=== PATIENT | female | born 1990 | race Caucasian/White ===

== ENCOUNTER 2019-04-28 22:26 | Observation (INO) | payer OTHER, SELFPAY ==
--- NOTE | 2019-04-28 22:41 | ED.SYNCOPE ---
HPI - Syncope General Chief Complaint: Syncope Stated Complaint: Syncope Time Seen by Provider: 04/28/19 22:38 Source: patient, family and EMS Limitations: no limitations History of Present Illness HPI narrative: 28-year-old female nonsmoker with no medical history presents with a chief complaint of an unprovoked syncopal episode earlier this evening. She had been in her normal state of health and was standing amongst a group of friends when she collapsed without any warning. She did not have any seizure-like activity. She had not been sick recently and denies any nausea, vomiting nor any new medications. She denies any street drugs. She recently flew home from [facility] and is on control. After her episode she very quickly returned to her baseline in asked what was going on. She sat up in a chair for a few minutes and then again had a syncopal episode. Again unprovoked. No change in position, use of the toilet or other common triggers. MD complaint: loss of consciousness Onset (ago): minute(s) Description of event: other Prodromal symptoms: none Witnessed: yes - by bystander Context: at rest Injuries sustained associated with event: none Current symptoms: none and back to baseline Treatments prior to arrival: none Related Data Home Medications Medication Instructions Recorded Confirmed No Known Home Medications 04/29/19 04/29/19 Allergies Allergy/AdvReac Type Severity Reaction Status Date / Time No Known Drug Allergies Allergy Verified 04/28/19 22:43 Review of Systems Constitutional Constitutional: Denies chills, Denies fatigue, Denies fever(s), Denies frequent falls, Denies lethargy and Denies weakness Eyes Eyes: Denies change in vision, Denies eye discharge, Denies irritation and Denies loss of vision ENT Ears, Nose, Mouth, and Throat: Denies change in voice, Denies dizziness, Denies neck pain, Denies sore throat and Denies throat swelling Cardiovascular Cardiovascular: Denies chest pain, Reports syncope, Denies irregular heart rhythm, Denies lightheadedness, Denies palpitations, Denies dyspnea, Denies dyspnea on exertion and Denies orthopnea Respiratory Respiratory: Denies cough, Denies dyspnea, Denies dyspnea on exertion and Denies wheezing Gastrointestinal Gastrointestinal: Denies abdominal pain, Denies change in bowel habits, Denies diarrhea, Denies nausea and Denies vomiting Genitourinary Genitourinary: Denies hematuria, Denies flank pain, Denies urinary incontinence and Denies urinary urgency Musculoskeletal Musculoskeletal: Denies back pain, Denies muscle weakness, Denies neck pain, Denies numbness and Denies tingling Integumentary/Breasts Skin/Breast: Denies pruritus, Denies erythema, Denies rash and Denies wounds Neurologic Neurologic: Denies behavioral changes, Denies confusion, Denies dizziness, Reports syncope, Denies frequent falls, Denies loss of vision, Denies numbness, Denies tingling and Denies weakness Psychiatric Psychiatric: Denies anxiety, Denies behavioral changes, Denies confusion, Denies depression, Denies homicidal ideation and Denies suicidal ideation Endocrine Endocrine: Denies fatigue, Denies flushing and Denies palpitations Hematologic/Lymphatic Hematologic/Lymphatic: Denies easy bruising Allergic/Immunologic Allergic/Immunologic: Denies urticaria, Denies throat swelling and Denies wheezing Patient History Medical History No active medical problems (Acute) Surgical History History of photorefractive keratectomy (Acute) Family History Father No active medical problems Mother No active medical problems Sister No active medical problems Social History household members: friend(s) Smoking Status: Never smoker Exam Narrative Exam Narrative: GENERAL: [28] year old patient appears stated age. Well-nourished, well-developed patient, in mild distress. HEAD: Atraumatic. Normocephalic. EYES: Pupils equal round and reactive. Extraocular motions intact. No scleral icterus. No injection or drainage. ENT: Nose without bleeding, purulent drainage. Throat without erythema, tonsillar hypertrophy or exudate. Airway patent. NECK: Trachea midline. Non tender CARDIOVASCULAR: Regular rate and rhythm without murmurs, gallops, or rubs. RESPIRATORY: Clear to auscultation. Breath sounds equal bilaterally. No wheezes, rales, or rhonchi. GASTROINTESTINAL: Abdomen soft, non-tender, nondistended. EXTREMITIES: No edema or joint tenderness. BACK: Nontender without deformity or crepitance. No flank tenderness. NEURO: AOx3. SKIN: No rash or erythema of visible areas Initial Vital Signs Initial Vital Signs: Vital Signs Temperature 97.9 F 04/28/19 22:43 Pulse Rate 85 04/28/19 22:43 Respiratory Rate 16 04/28/19 22:43 Blood Pressure 113/69 04/28/19 22:43 Pulse Oximetry 100 04/28/19 22:43 Course Orders Ordered: ED Orders 04/28/19 22:15 Basic Metabolic Panel Stat Complete Blood Count AUTO DIFF Stat D Dimer Stat Magnesium Stat 04/28/19 23:06 CT angio chest PE protocol Stat Acetaminophen (Tylenol) 650 mg PO Q6HR PRN PRN Reason: As Needed for Fever/Mild Pain Al Hydrox/Mg Hydrox/Simethicone (Maalox Plus) 30 ml PO Q6HR PRN PRN Reason: Dyspepsia Calcium Carbonate (Tums) 1,000 mg PO Q4HR PRN PRN Reason: Dyspepsia Sodium Chloride (Normal Saline 0.9%) 1,000 mls @ 50 mls/hr IV CONT RADHA Last Admin: 04/29/19 00:40 Dose: 50 mls/hr Documented by: TAJ Ondansetron HCl (Zofran) 4 mg IV Q8HR PRN PRN Reason: Nausea And Vomiting Discontinued Medications Sodium Chloride (Normal Saline 0.9%) 1,000 mls @ 1,000 mls/hr IV BOLUS ONE Stop: 04/28/19 23:38 Last Infusion: 04/28/19 23:41 Dose: 1,000 mls/hr Documented by: Admin: 04/28/19 22:43 Dose: 1,000 mls/hr Documented by: HARIS Vital Signs Vital signs: Vital Signs - 8 hr 04/28/19 22:43 04/28/19 23:53 Temperature 97.9 F Pulse Rate 85 126 H Respiratory Rate 16 19 Blood Pressure 113/69 Blood Pressure [Left Arm] 116/60 Pulse Oximetry 100 100 MDM - Syncope Lab Data Result diagrams: 04/29/19 04:40 04/29/19 04:40 Labs: Lab Results 04/28/19 04/28/19 04/28/19 Range/Units 22:15 22:15 22:15 WBC 14.3 H (4.5-11.0) X10^3/uL RBC 4.68 (4.0-5.2) X10^6/uL Hgb 14.4 (12.0-16.0) g/dL Hct 42.5 (36-46) % MCV 90.7 (80-100) fL MCH 30.8 (26-34) PG MCHC 34.0 (30-36) % RDW 12.7 (11.6-14.8) % Plt Count 405 H (150-400) X10^3/uL Neut % (Auto) Not Reportable Lymph % (Auto) Not Reportable [place] % (Auto) Not Reportable Eos % (Auto) Not Reportable Baso % (Auto) Not Reportable Lymph # (Auto) Not Reportable [place] # (Auto) Not Reportable Baso # (Auto) Not Reportable Total Counted 100 Seg Neutrophils % 59.0 (38-70) % Band Neutrophils % 3.0 (3-7) % Lymphocytes % (Manual) 24.0 L (25-45) % Atypical Lymphs % 9.0 H ( - 0) % Monocytes % (Manual) 5.0 (2-11) % Neutrophils # (Manual) 8866 H (9717-6216) /uL RBC Morphology Normal morphology D-Dimer 642 H (<230) ng/mL Sodium 140 (137-145) mmol/L Potassium 3.9 (3.4-5.1) mmol/L Chloride 101 (98-107) mmol/L Carbon Dioxide 23 (22-32) mmol/L BUN 12 (7-17) mg/dL Creatinine 0.90 (0.52-1.04) mg/dL Estimated GFR > 60.0 (>60) mL/min BUN/Creatinine Ratio 13.3 (6-22) Glucose 115 H (70-100) mg/dL Calcium 10.0 (8.4-10.2) mg/dL Magnesium 2.4 H (1.6-2.3) mg/dL Point of Care Testing Test Results Negative Urine Dip Bedside Urine Glucose Negative Bedside Urine Bilirubin - Negative Bedside Urine Ketone - Negative Urine Specific [place] 1.010 Bedside Urine Occult Blood - Negative Bedside Urine pH 6.0 Bedside Urine Protein +/- 15 Bedside Urine Urobilinogen - Negative Bedside Urine Nitrite - Negative Bedside Urine Leukocytes - Negative Esterase Imaging Data CT scan - chest: Radiologist's impression: No PE ECG Data Attestation: I personally reviewed and interpreted this ECG as follows: MDM Narrative Medical decision making narrative: 28-year-old female with unprovoked syncope and no clear cause raises the question of a cardiac arrhythmia. Patient asymptomatic in the department, reassuring labs, EKG and a CT a which demonstrates no PE Discharge Plan Departure Patient Disposition: Admitted as Observation Clinical Impression: Atypical syncope Discharge Date/Time: 04/29/19 00:35 Admit Date/Time: 04/29/19 00:04 Admit Provider: Jimenez Bach
[2019-04-28 22:43] VITALS: BP 113/69; PULSE 85; RESP 16; TEMP 36.6; O2SAT 100; BMI 25.7
[2019-04-28] MEDS: SODIUM CHLORIDE 0.9% 1,000 ML 1000 ML IV (22:43)
[2019-04-28 22:53] LABS: Hematocrit 42.5 % (36-46); Hemoglobin 14.4 g/dL (12.0-16.0); Mean Corpuscular Hemoglobin 30.8 PG (26-34); Mean Corpuscular Volume 90.7 fL (80-100); Platelet Count 405 X10^3/uL (150-400); Red Blood Cell Count 4.68 X10^6/uL (4.0-5.2); Red Cell Distribution Width 12.7 % (11.6-14.8); White Blood Cell Count 14.3 X10^3/uL (4.5-11.0)
[2019-04-28 22:54] LABS: Add Manual Diff / Slide Review YES
[2019-04-28 22:56] LABS: D Dimer 642 ng/mL (<230)
[2019-04-28 22:57] LABS: BUN Creatinine Ratio 13.3 (6-22); Blood Urea Nitrogen 12 mg/dL (7-17); Carbon Dioxide 23 mmol/L (22-32); Chloride 101 mmol/L (98-107); Estimated Glomerular Filt Rate > 60.0 mL/min (>60); Glucose 115 mg/dL (70-100); HEMOLYSIS 41 (0-50); Magnesium 2.4 mg/dL (1.6-2.3); Potassium 3.9 mmol/L (3.4-5.1); Sodium 140 mmol/L (137-145)
--- NOTE | 2019-04-28 23:06 | DI.CT.S_ITS ---
PROCEDURE: CT ANGIO CHEST PE PROTOCOL INDICATIONS: syncope, elevated D-Dimer, frequent flights, on control TECHNIQUE: After the administration of intravenous contrast, 2 mm thick sections acquired from the pulmonary apices to the posterior costophrenic angles. 3-dimensional maximum intensity projection (MIP) coronal and sagittal reformats were then acquired through the thorax. For radiation dose reduction, the following was used: automated exposure control, adjustment of mA and/or kV according to patient size. COMPARISON: None. FINDINGS: Image quality: Excellent. Pulmonary arteries: Pulmonary arteries are normal in size, and demonstrate no intraluminal filling defects to suggest central pulmonary embolism. Lungs and pleura: Lungs are clear. No pleural effusions or pneumothorax. Central and peripheral airways are patent. Mediastinum: Heart size is normal, without pericardial effusion. No mediastinal or hilar adenopathy. Thoracic aorta is normal in caliber and enhancement. Esophagus is normal in caliber, without hiatal hernia. Bones and chest wall: No suspicious bony lesions. Ribs and thoracic spine appear intact throughout. Thyroid gland is within normal limits where visualized. No axillary or supraclavicular adenopathy. Abdomen: Visualized upper abdominal solid organs appear normal in the early arterial phase of enhancement. IMPRESSION: 1. No pulmonary embolus. 2. No lung consolidation or pleural effusions. Dictated by: Gini Tracy MD, PhD on 04/29/2019 at 7:29 Approved by: Gini Tracy MD, PhD on 04/29/2019 at 7:31
[2019-04-28 23:52] LABS: Neutrophils Absolute Manual 8866 /uL (3000-5900); Total Cells Counted 100
[2019-04-28 23:53] VITALS: BP 116/60; PULSE 126; RESP 19; O2SAT 100
[2019-04-28 23:53] LABS: RBC Morphology Normal Morphology
[2019-04-29] VITALS (7 sets, daily range): BP systolic 113–136; BP diastolic 60–84; PULSE 78–126; RESP 14–20; TEMP 36.8–37.2; O2SAT 98–100; BMI 25.7
[2019-04-29] MEDS: SODIUM CHLORIDE 0.9% 1,000 ML 50 ML IV (00:40)
--- NOTE | 2019-04-29 00:52 | PM.HP.1 ---
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 Patient reports that she was at a casino with friends and states that 1 moment she was standing in the next moment she was on the floor. Her friends were with her did not witness the 1st episode but describes her as being pale and diaphoretic. Color returned spontaneously in the patient was assist bar where she experienced a 2nd syncopal episode while drinking water with some shaking of the hands again becoming pale and diaphoretic prior to passing out. Per her friends the patient was unresponsive for only few seconds waking with rapid return to baseline mentation. The patient has had no prior history of syncope, she has had 2 beers tonight. She denies recent fevers or chills but has had recent symptoms of upper respiratory infection with nasal congestion. She denies sore throat. She has had no shortness of breath or cough and denies wheezing. She denies chest pain or palpitations. She reports no abdominal pain, nausea vomiting, heartburn, constipation or diarrhea. She reports no urinary symptoms, no urgency frequency or burning. 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 Patient's only medication is control pills. Per report EMS upon arrival the patient was hypotensive and bradycardic. Upon arrival to the ER she is afebrile with temperature 97.9?, heart rate of 85, blood pressure 113/69, respirations 16 saturating 100% on room air. An EKG is obtained showing baseline artifact with sinus rhythm without ectopy, inverted T-wave in lead III, subtle possibility delta wave, normal QTC interval. Patient also had a D-dimer done related to history of trans was handed flight from [place] 3 weeks ago which is found to be elevated at 642, CT angiogram was obtained which is negative for pulmonary embolism, normal heart size with no pericardial effusion, mild diffuse bronchial wall thickening, no bronchiectasis, no suspicious pulmonary nodules on laboratory analysis the patient has an elevated white count of 14.3 with a hemoglobin of 14.4 and hematocrit 42.5 with platelets of 405. Patient is a low lymphocyte count at 24% and elevated atypical lymphs at 9%. Her chemistry panels fully within normal limits with a BUN of 12 and a creatinine 0.9. Her nonfasting glucose is 115. Magnesium is 2.4. Urine dip screening shows a specific gravity of 1.010, without ketones or signs of infection. Urine test is negative. The patient is admitted to the the medicine service following 2 syncopal episodes of unknown etiology. Patient History Medical History No active medical problems (Acute) Surgical History History of photorefractive keratectomy (Acute) Family & Social History Family History (Updated 04/29/19 @ 01:29 by BAO Dang) Father No active medical problems Mother No active medical problems Sister No active medical problems Safety & Behavioral: Feels Safe in Current Yes Environment Tobacco & Substance use: Smoking Status Never smoker alcohol intake frequency a few times a week Substance Use Type does not use Comment: The patient is presently single lives in a single in a single family house. She reports that her parents are both healthy with no known medical problems and she has 1 sister who is also in good health. She does at that there is diabetes on her father's side but no history of cancer or heart disease. Occupation: Active duty [email or web address]. Smoking: Patient will have an occasional cigarette in social settings Alcohol: Patient endorses approximately 3 drinks per week. Substance use: The patient denies recreational pharmaceuticals herbal or cannabis products. Advanced directives: The patient has no formal advanced directive but states her desire to be FULL CODE. She designates her father Abdias to be her surrogate decision maker. Meds Home Medications and Allergies Home Medications Medication Instructions Recorded Confirmed Type No Known Home Medications 04/29/19 04/29/19 History Allergies Allergy/AdvReac Type Severity Reaction Status Date / Time No Known Drug Allergies Allergy Verified 04/28/19 22:43 Review of Systems Review of Systems ROS Unobtainable: All systems reviewed & are unremarkable except as noted in HPI and below Exam Vital Signs (past 8 hours): - 04/28/19 22:43 04/28/19 23:53 Temperature 97.9 F Pulse Rate 85 126 H Respiratory Rate 16 19 Blood Pressure 113/69 Blood Pressure [Left Arm] 116/60 Pulse Oximetry 100 100 Oxygen Delivery Method Room Air Narrative Exam Narrative: GENERAL APPEARANCE: well developed, well nourished, in no acute distress. HEENT: Symmetrical facies, no neurology, atraumatic, PERRLA, conjunctiva clear, EOMs intact without nystagmus, no sinus tenderness to percussion, no rhinorrhea, mucous membranes are moist and pink without lesions or exudate. NECK/THYROID: neck supple, no JVD, no thyromegaly, trachea midline. LYMPH NODES: no cervical or supraclavicular lymphadenopathy. SKIN: warm and dry, no suspicious lesions, no rashes, ulcerations or petechiae. HEART: Tachycardic rate and rhythm, S1-S2, no murmur, no rubs or gallops, 2+ dorsalis pedis pulses, brisk capillary refill, no edema. LUNGS: clear to auscultation bilaterally, no coarseness crackles or wheezing, no cough present. CHEST: Symmetrical movement, no accessory muscle use, no pain to AP and lateral compression. ABDOMEN: Soft, no distention, no abdominal tenderness, no guarding or peritoneal signs, no organomegaly, no flank or suprapubic tenderness, active bowel tones. BACK: Normal curvature, nontender to palpation, no CVA tenderness on percussion. EXTREMITIES: moves all extremities, strength is 5/5 and symmetrical, no deformities or joint effusions, no calf tenderness, negative Garcia. NEUROLOGIC: AAO x4, no focal neurologic deficits, sensation intact to light touch, hearing grossly normal to speech. PSYCH: Anxious, cognitive function intact, good eye contact, stable behavior. Objective Labs Result Diagrams: 04/28/19 22:15 04/28/19 22:15 Labs: Laboratory Results - last 24 hr 04/28/19 04/28/19 04/28/19 22:15 22:15 22:15 WBC 14.3 H RBC 4.68 Hgb 14.4 Hct 42.5 MCV 90.7 MCH 30.8 MCHC 34.0 RDW 12.7 Plt Count 405 H Neut % (Auto) Not Reportable Lymph % (Auto) Not Reportable [place] % (Auto) Not Reportable Eos % (Auto) Not Reportable Baso % (Auto) Not Reportable Lymph # (Auto) Not Reportable [place] # (Auto) Not Reportable Baso # (Auto) Not Reportable Total Counted 100 Seg Neutrophils % 59.0 Band Neutrophils % 3.0 Lymphocytes % (Manual) 24.0 L Atypical Lymphs % 9.0 H Monocytes % (Manual) 5.0 Neutrophils # (Manual) 8866 H RBC Morphology Normal morphology D-Dimer 642 H Sodium 140 Potassium 3.9 Chloride 101 Carbon Dioxide 23 BUN 12 Creatinine 0.90 Estimated GFR > 60.0 BUN/Creatinine Ratio 13.3 Glucose 115 H Calcium 10.0 Magnesium 2.4 H Assessment & Plan Assessment & Plan narrative: This 20-year-old female with 2 [id number] syncopal episodes several minutes apart lasting only for a few seconds each time. Patient sustained no trauma and has no predisposing history. 1. Syncopal episode, acute, resolved, active -patient sustained syncopal episode occurring while standing performing no strenuous activity with friends at a casino. Second episode occurred while sitting at the bar drinking water. Patient has sustained no trauma. No provocative activities prior to syncope. -patient with associated pallor with diaphoresis associated with the events, rapid return to consciousness and baseline no seizure activity noted. -differential diagnosis: -vasovagal mediated syncope, patient consumed 2 beers prior to the events,history of possible cold symptoms. Per EMS bradycardic and hypotensive -cardiac arrhythmia, suggestion of isoelectric delta wave on 12 lead EKG, no prolonged QTC, not characteristic of [place] syndrome. -neurologic event, presentation and rapid recovery is inconsistent with seizure or neurological event in absence of headache or neuro symptoms. -will obtain orthostatic vital signs, normal saline 50 cc/hour. -obtain echocardiogram in the morning -repeat 12 lead EKG in the morning -repeat BMP monitor electrolytes. 2. Atypical lymphocytosis, acute, present on admission, active -patient with low lymphocyte percentage it 24.0 % and high atypical lymphs at 9%. Normal neutrophil count at 59 % and pain are 3%. -most likely related to recent cold symptoms reporting nasal congestion but no fevers, no sore throat or lymphadenopathy. -will repeat CBC in the morning. 3. Elevated D-dimer, acute, present on admission, active -patient with no recent history of trauma or injury, history of long flight returning from [facility] 3 weeks ago D-dimer elevated at 642. -no complaints of chest pain, exertional dyspnea or shortness of breath. -CTAs obtained the ER which is negative for pulmonary embolism. VTE: no The patient is admitted to the hospital related to syncope of unknown etiology in the prescribed per 10 she will complications or adverse events. The patient is admitted as observation with expected length of stay to be less than 2 midnights. Scores GCS [place] coma scale eye opening: Spontaneous [place] coma scale verbal response: Orientated Bo coma scale motor response: Obey commands [place] coma scale total score: 15
--- NOTE | 2019-04-29 01:39 | PC.NURSE ---
0040 Pt. admitted to room 228, with the diagnosed of 2 Syncopal episodes. Oriented to her room, showed how to use her Call light, TV & bed controls. Denies any dizziness, nausea, pain & other discomfort. Encouraged to call Nursing staff if she needed to get up OOb to the BR. Call light with in reach & bed alarm activated. Will cont. POC & monitor.
[2019-04-29 05:06] LABS: BUN Creatinine Ratio 14.3 (6-22); Blood Urea Nitrogen 10 mg/dL (7-17); Calcium 9.2 mg/dL (8.4-10.2); Carbon Dioxide 25 mmol/L (22-32); Chloride 106 mmol/L (98-107); Estimated Glomerular Filt Rate > 60.0 mL/min (>60); Glucose 92 mg/dL (70-100); HEMOLYSIS < 15 (0-50); Potassium 4.4 mmol/L (3.4-5.1); Sodium 138 mmol/L (137-145)
[2019-04-29 05:07] LABS: Add Manual Diff / Slide Review NO; Basophils Absolute Auto 100 /uL (0-100); Basophils Percent Auto 0.4 % (0-2); Eosinophils Absolute Auto 100 /uL (0-450); Eosinophils Percent Auto 0.6 % (2-4); Hematocrit 38.5 % (36-46); Hemoglobin 12.9 g/dL (12.0-16.0); Lymphocytes Absolute Auto 3500 /uL (1100-4500); Mean Corpuscular HGB Conc 33.7 % (30-36); Mean Corpuscular Hemoglobin 30.4 PG (26-34); Mean Corpuscular Volume 90.3 fL (80-100); Monocytes Absolute Auto 800 /uL (0-900); Neutrophils Absolute Auto 7200 /uL (1500-7000); Platelet Count 350 X10^3/uL (150-400); Red Blood Cell Count 4.26 X10^6/uL (4.0-5.2); White Blood Cell Count 11.6 X10^3/uL (4.5-11.0)
[2019-04-29 06:00] LABS: TSH w/ Reflex to FT4 2.27 uIU/mL (0.47-4.68)
--- NOTE | 2019-04-29 06:58 | PC.NURSE ---
0550 SBA to the BR. denies any dizziness, nausea & discomfort. Voided 500 cc of yue urine, NS infusing @ 50 cc/hr. Will cont. POC & monitor.
--- NOTE | 2019-04-29 09:05 | PM.DS.1 ---
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 Patient reports that she was at a casino with friends and states that 1 moment she was standing in the next moment she was on the floor. Her friends were with her did not witness the 1st episode but describes her as being pale and diaphoretic. Color returned spontaneously in the patient was assist bar where she experienced a 2nd syncopal episode while drinking water with some shaking of the hands again becoming pale and diaphoretic prior to passing out. Per her friends the patient was unresponsive for only few seconds waking with rapid return to baseline mentation. The patient has had no prior history of syncope, she has had 2 beers tonight. She denies recent fevers or chills but has had recent symptoms of upper respiratory infection with nasal congestion. She denies sore throat. She has had no shortness of breath or cough and denies wheezing. She denies chest pain or palpitations. She reports no abdominal pain, nausea vomiting, heartburn, constipation or diarrhea. She reports no urinary symptoms, no urgency frequency or burning. 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 Patient's only medication is control pills. Per report EMS upon arrival the patient was hypotensive and bradycardic. Upon arrival to the ER she is afebrile with temperature 97.9?, heart rate of 85, blood pressure 113/69, respirations 16 saturating 100% on room air. An EKG is obtained showing baseline artifact with sinus rhythm without ectopy, inverted T-wave in lead III, subtle possibility delta wave, normal QTC interval. Patient also had a D-dimer done related to history of trans was handed flight from [place] 3 weeks ago which is found to be elevated at 642, CT angiogram was obtained which is negative for pulmonary embolism, normal heart size with no pericardial effusion, mild diffuse bronchial wall thickening, no bronchiectasis, no suspicious pulmonary nodules on laboratory analysis the patient has an elevated white count of 14.3 with a hemoglobin of 14.4 and hematocrit 42.5 with platelets of 405. Patient is a low lymphocyte count at 24% and elevated atypical lymphs at 9%. Her chemistry panels fully within normal limits with a BUN of 12 and a creatinine 0.9. Her nonfasting glucose is 115. Magnesium is 2.4. Urine dip screening shows a specific gravity of 1.010, without ketones or signs of infection. Urine test is negative. The patient is admitted to the the medicine service following 2 syncopal episodes of unknown etiology. Discharge Providers Provider Date of admission: 04/29/19 00:04 Discharge Date: 04/29/19 Consults: 04/29/19 00:33 Consult to Discharge Planning Routine Comment: Discharge provider: Jimenez Garcia DO Summary Hospital Course Discharge Diagnosis: 1. Syncopal episode, acute, resolved 2. Atypical lymphocytosis, acute, present on admission, active 3. Elevated D-dimer, acute, present on admission, active Hospital Course: Patient was admitted under observation status over concern after [id number] episodes of syncope. Her story is reassuring for a vasovagal mediated syncope given complaints of feeling hot after the episode and that she regained consciousness so quickly. Her EKG is unremarkable, it is normal sinus rhythm and there is no evidence of delta wave or evidence of ischemia. There is no need to obtain an echocardiogram given her young age, reassuring story, and normal EKG. There were no events on telemetry overnight and patient is to follow up with her primary care provider. Status at Discharge Cognitive/behavioral status at discharge: oriented Exam Vital Signs (past 8 hours): - 04/29/19 05:00 04/29/19 05:50 Temperature 98.3 F Pulse Rate 92 H Respiratory Rate 16 Blood Pressure 113/64 Pulse Oximetry 99 98 Oxygen Delivery Method Room Air Oxygen Flow Rate 0 Narrative Exam Narrative: GENERAL APPEARANCE: Well developed, well nourished, in no acute distress. SKIN: Inspection of the skin reveals no rashes, ulcerations or petechiae. HEENT: The sclerae were anicteric and conjunctivae were pink and moist. Extraocular movements were intact and pupils were equal, round with normal accommodation. External inspection of the ears and nose showed no scars, lesions, or masses. Lips, teeth, and gums showed normal mucosa. The oral mucosa, hard and soft palate, tongue and posterior pharynx were unremarkable. NECK: Supple and symmetric. There was no thyroid enlargement, and no tenderness, or masses were felt. CHEST: Normal AP diameter and normal contour without any kyphoscoliosis. LUNGS: Auscultation of the lungs revealed no wheezes, rhonchi, or rales. CARDIOVASCULAR: There was a regular rate and rhythm without any murmurs, gallops, rubs. Peripheral pulses were 2+ and symmetric. ABDOMEN: Soft and nontender with normal bowel sounds. No ascites was noted. MUSCULOSKELETAL: There was no tenderness or effusions noted. Muscle strength and tone were normal. EXTREMITIES: No cyanosis, clubbing or edema. NEUROLOGIC: Alert and oriented x 3. Normal affect. Gait was normal. Strength is +5/5 in the Upper Extremities and Lower Extremities Bilaterally. Sensation to touch was normal. Objective Labs Result Diagrams: 04/29/19 04:40 04/29/19 04:40 Labs: Laboratory Results - last 24 hr 04/28/19 04/28/19 04/28/19 22:15 22:15 22:15 WBC 14.3 H RBC 4.68 Hgb 14.4 Hct 42.5 MCV 90.7 MCH 30.8 MCHC 34.0 RDW 12.7 Plt Count 405 H Neut % (Auto) Not Reportable Lymph % (Auto) Not Reportable Hendricks % (Auto) Not Reportable Eos % (Auto) Not Reportable Baso % (Auto) Not Reportable Neut # (Auto) Lymph # (Auto) Not Reportable Hendricks # (Auto) Not Reportable Eos # (Auto) Baso # (Auto) Not Reportable Total Counted 100 Seg Neutrophils % 59.0 Band Neutrophils % 3.0 Lymphocytes % (Manual) 24.0 L Atypical Lymphs % 9.0 H Monocytes % (Manual) 5.0 Neutrophils # (Manual) 8866 H RBC Morphology Normal morphology D-Dimer 642 H Sodium 140 Potassium 3.9 Chloride 101 Carbon Dioxide 23 BUN 12 Creatinine 0.90 Estimated GFR > 60.0 BUN/Creatinine Ratio 13.3 Glucose 115 H Calcium 10.0 Magnesium 2.4 H TSH 04/29/19 04/29/19 04/29/19 04:40 04:40 04:40 WBC 11.6 H RBC 4.26 Hgb 12.9 Hct 38.5 MCV 90.3 MCH 30.4 MCHC 33.7 RDW 13.0 Plt Count 350 Neut % (Auto) 62.0 Lymph % (Auto) 30.0 Hendricks % (Auto) 7.0 Eos % (Auto) 0.6 L Baso % (Auto) 0.4 Neut # (Auto) 7200 H Lymph # (Auto) 3500 Hendricks # (Auto) 800 Eos # (Auto) 100 Baso # (Auto) 100 Total Counted Seg Neutrophils % Band Neutrophils % Lymphocytes % (Manual) Atypical Lymphs % Monocytes % (Manual) Neutrophils # (Manual) RBC Morphology D-Dimer Sodium 138 Potassium 4.4 Chloride 106 Carbon Dioxide 25 BUN 10 Creatinine 0.70 Estimated GFR > 60.0 BUN/Creatinine Ratio 14.3 Glucose 92 Calcium 9.2 Magnesium TSH 2.27 Discharge Plan Discharge Plan Patient Disposition: Home Discharge comment: You were admitted to the hospital after two episodes of syncope. These are most likely vaso-vagal in origin. Your EKG was unremarkable and you are safe to discharge home. Please follow up with your primary care provider as a holter monitor may be needed. Please be sure to stay well hydrated. Discharge Med Rec/Prescriptions Prescriptions: No Action No Known Home Medications RF: 0 Provider Discharge Instructions Diet: Diet as Tolerated Activity: As tolerated. Visit Report/Discharge Packet Instructions: DI for Syncope in Adults (Fainting) Discharge Data Attending Provider: Jimenez Bach Admit Date/Time: 04/29/19 00:04 Quality VTE Deep Vein Thrombosis/Pulmonary Embolism Present on Admission: No
--- NOTE | 2019-04-29 09:16 | PC.NURSE ---
0800- Pt denies feeling dizzy or like passing out. She is stable and steady on her feet when ambulating to the bathroom...She ate well at breakfast and is drinking fluids. into see patient and she is going to be discharged. Echo-doppler has been d/cd.
--- NOTE | 2019-04-29 10:45 | CM.DANOTE ---
DCP: Case received, EMR reviewed and met with patient. Introduced self and role. Was able to converse with patient and obtain baseline health and activity history. DCP assessment/template, completed with information currently available. Patient is a 28 year old female who admitted early this morning to the care of the hospitalist team. PCP: [facility], [facility]. Payer: confirmed: Génesis Monae. Patient came to the hospital via ambulance secondary to a syncopal episode. Patient had been at a casino, and had went to the floor losing consciousness. According to patient, she remembered laying on the floor with her friends surrounding her. Met with patient in her room. 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 She is single and independent. Patient has been stationed here for approximately 2 years, and is originally from [place], [place]. She is here for some testing. She mentioned, I am pretty healthy and active, I have never had anything like this before. P: Patient is to be discharged home today. She will need follow up with her primary doctor at the [facility]. Samantha Keita RN/Route Service Manager
--- NOTE | 2019-05-12 09:29 | PC.NURSE ---
Late entry: NS stop time 04/29 [id number]
== END 2019-04-29 11:54 | disposition home or self-care (01) ==
LOC: ED 04-29 00:04 → AC 04-29 00:06
PROVIDERS: Admitting Provider Nurse Practitioner Adult Health; Emergency Provider Emergency Medicine; Visit Provider Nurse Practitioner Adult Health
DX: R55 Syncope and collapse (principal); D72.820 Lymphocytosis (symptomatic); R79.1 Abnormal coagulation profile
CPT/HCPCS: 36415; 71275; 80048; 81003; 81025; 83735; 84443; 85025; 85379; 93005; 93010; 96360; 96361; 99283; 99285; G0378; Q9967